=== PATIENT | female | born 1950 | race Caucasian/White ===

== ENCOUNTER → 2024-01-20 | Outpatient (REF) | payer MEDICARE ==
[~2024-01-20] MED LIST: ASPI81TA85; BENA25CA PO; BETA145CR EXT; CIME-49 PO; COUM1TAB18 PO; DIOVAN PO; EXCETAB81 PO; GLUCTAB6 PO; IBUP600T26 PO; IMITREX PO; MAPA500T17 PO; PERC7.5T12 PO; SYNT300T2 PO
== END ==
LOC: M LAB REF 15:41
PROVIDERS: ATTEND Orthopaedic Surgery
DX: Z48.816 Encounter for surgical aftercare following surgery on the genitourinary system (principal)

== ENCOUNTER → 2024-01-21 | Outpatient (REF) | payer MEDICARE | LOC: M LAB REF 01-20 13:35 → EEVIPCON 15:40 | PROVIDERS: ATTEND Orthopaedic Surgery | DX: T81.40XA Infection following a procedure, unspecified, initial encounter (principal) ==